=== PATIENT | male | born 2000 | race Caucasian/White ===

== ENCOUNTER → 2020-01-28 10:00 | Outpatient (CLI) | payer BC, SELFPAY ==
[2020-01-28 10:49] LABS: Basophils # 0.1 K/mm3 (0-0.2); Basophils % 2.7 % (0.1-2.0); Eosinophils % 0.5 % (0.1-12.0); Hematocrit 47.8 % (42.0-52.0); Hemoglobin 15.5 g/dL (14.1-18.0); Lymphocytes # 0.9 K/mm3 (0.7-4.5); Lymphocytes % 25.9 % (10-50); Mean Corpuscular HGB Conc 32.5 g/dL (31.8-35.4); Mean Corpuscular Hemoglobin 26.6 pg (27.0-31.2); Mean Platelet Volume 8.6 fl (7.4-10.4); Monocytes # 0.4 K/mm3 (0.1-1.0); Monocytes % 10.7 % (1.7-9.3); Neutrophils # 2.1 K/mm3 (1.8-7.8); Neutrophils % 60.1 % (37.0-80.0); Platelet Count 181 K/mm3 (142-424); Red Blood Count 5.83 M/mm3 (4.60-6.20); Red Cell Distribution Width 12.6 % (11.5-17.5); White Blood Count 3.5 K/mm3 (4.8-10.8)
[2020-01-28 11:34] LABS: Erythrocyte Sedimentation Rate 10 mm/hr (0-15)
== END ==
PROVIDERS: Visit Provider Nurse Practitioner Family
DX: R50.9 Fever, unspecified (principal)
CPT/HCPCS: 36415; 85025; 85651

== ENCOUNTER → 2020-01-30 12:38 | Outpatient (CLI) | payer BC, SELFPAY ==
[2020-02-01 20:02] LABS: Covid-19 Nasal PCR Sendout Lex NOT DETECTED
--- NOTE | 2020-02-02 11:27 | PC.NURSE ---
Patient told of negative COVID-19 test result via phone.
== END ==
PROVIDERS: Visit Provider Family Medicine
DX: R50.9 Fever, unspecified (principal); D72.819 Decreased white blood cell count, unspecified
CPT/HCPCS: U0003

== ENCOUNTER → 2020-05-19 15:03 | Outpatient (CLI) | payer BC, SELFPAY ==
--- NOTE | 2020-05-19 | XR_ITS ---
PROCEDURE: XR ANKLE RT MIN 3V CLINICAL INDICATION: RT ANKLE PAIN COMPARISON: CR ANKR2 ANKLE-RT-2 VIEWS from 12/08/2010 CR ANKR3 ANKLE-RT-3 VIEWS from 11/12/2014 CR ANKR3 ANKLE-RT-3 VIEWS from 08/14/2016 CR ANKCMRT XR ankle RT min 3V from 02/06/2018 FINDINGS: Postsurgical changes are present of the calcaneus. No acute fracture or dislocation evident. There has been prior removal and os trigonum IMPRESSION: No change with no acute finding Dictated by: Andrew Fields MD 05/19/2020 16:04 Andrew Fields MD in [place] 05/19/2020 16:04
== END ==
PROVIDERS: PCP Nurse Practitioner Family; Visit Provider Nurse Practitioner Family
DX: M25.571 Pain in right ankle and joints of right foot (principal)
CPT/HCPCS: 73610

== ENCOUNTER → 2020-05-25 15:20 | Outpatient (CLI) | payer BC, SELFPAY ==
--- NOTE | 2020-05-25 15:25 | MR_ITS ---
PROCEDURE: MR ANKLE RT WO CON CLINICAL INDICATION: PAIN IN RIGHT ANKLE, LIMPING GAIT Pt. C/p limping gait with prior surgeries of rt ankle in 2013 and 2014 bone fusion Aand tendon transplant. Pain is posterior and medial with no recent injury or trauma. COMPARISON: CR XR ANKLE RT MIN 3V from 05/19/2020 TECHNIQUE: Routine multiplanar multi echo sequences are performed without gadolinium enhancement. FINDINGS: There postsurgical changes involving the posterior aspect of the calcaneus and the Achilles region with significant artifact at this area. It appears at the flexor hallucis longus tendon has been transplanted to the calcaneal area. The posterior tibialis and flexor digitorum longus tendon appears intact. Artifact is present at the Achilles tendon distally. The Achilles tendon does appear intact. The peroneal tendons and the anterior extensor tendons appear intact. The talar dome has an unremarkable appearance. The ATFL and PT FL and the tibiofibular ligaments have an unremarkable appearance. There appears to be some sparsely of the deltoid ligament fibers which could be due to sprain or partial tear. A complete tear is not felt to be present. No abnormal fluid collections or fractures. There is some increased T2 signal involving the anterior process of the calcaneus at the anterior subtalar joint area consistent with some bone marrow edema. IMPRESSION: 1. Postsurgical changes with apparent tendon transfer of the flexor hallucis longus tendon to the calcaneus with moderate degree of artifact at the distal Achilles and posterior calcaneal region. 2. Small amount of bone marrow edema involves the anterior process of the calcaneus at the anterior subtalar joint 3. Sparsely of the fibers of the deltoid ligament which could be due to sprain or partial tear.. Dictated by: Andrew Fields MD 05/27/2020 11:37 Andrew Fields MD in [place] 05/27/2020 11:37
== END ==
PROVIDERS: PCP Nurse Practitioner Family; Visit Provider Nurse Practitioner Family
DX: M25.571 Pain in right ankle and joints of right foot (principal); R26.89 Other abnormalities of gait and mobility; Z98.890 Other specified postprocedural states
CPT/HCPCS: 73721